=== PATIENT | male | born 1960 | race Caucasian/White ===

== ENCOUNTER 2017-03-23 07:19 | Emergency (ER) | payer OTHER ==
--- NOTE | ~2017-03-23 | CR63 ---
[facility]. [facility] RADIOLOGY TEXT RESULTS PATIENT: XU CHERRY LOCATION: SED : 58 UNIT #: [id number] AGE: [address]: Ramesh Yates MD SEX: M ORDER DR: [id number] [place] [id number] E MR#: [id number] Acc #: [id number] NAME: XU CHERRY : 1960 SEX: M STUDY DATE/TIME: 03/23/2017 7:53 UNIT: SED ROOM: STUDY DESCRIPTION: CR Chest 2 View Attending Physician: Ramesh Yates M.D. Ordering Physician: Ramesh Yates M.D. Primary Care Physician: No Primary Care Physician MEDICAL IMAGING REPORT This report is preliminary unless electronic signature is present. EXAM 2 views chest, 03/23/2017. HISTORY Cough. Began last . Became worse Wednesday. Cough, congestion. History of smoking. TECHNIQUE PA and lateral radiographs of the chest are presented. FINDINGS Degenerative changes of the spine. No acute appearing bony abnormality. Heart and mediastinum normal in size and contour. Lungs hyperinflated. Likely reflecting underlying COPD in patient with history of tobacco usage. No clear indication of acute infectious or inflammatory disease, pleural effusion or pneumothorax. No suspicious nodule. Healed granulomatous disease left lung. Dictated by... Amador Menendez M.D. THIS IS AN ELECTRONICALLY VERIFIED REPORT Amador Menendez M.D. at 03/24/2017 2:25 PM KWASI/que TD: 03/23/2017 10:51 JOB #: [id number] MEDICAL IMAGING REPORT [facility] RADIOLOGY TEXT RESULTS PATIENT: XU CHERRY LOCATION: SED : 58 UNIT #: [id number] AGE: [address]: Ramesh Yates MD SEX: M ORDER DR: Page 1 of 1
[~2017-03-23 07:19] MED LIST: DICLOFENAC PO; NAPROSYN500 MG PO; NO MEDICATIONS; NORFLEX100 M1 PO; ROBAXIN 750750 M1 PO; TYLENOL #3 PO; VOLTAREN PO
[2017-03-23] MEDS ORDERED: NO MEDICATIONS (07:25)
== END 2017-03-23 08:40 | disposition home or self-care (01) ==
LOC: SED 07:19
DX: J20.9 Acute bronchitis, unspecified (principal); F17.200 Nicotine dependence, unspecified, uncomplicated
CPT/HCPCS: 71020; 94640; 99283